=== PATIENT | female | born 1990 | race Caucasian/White ===

== ENCOUNTER 2016-10-20 09:44 | Emergency (ER) | payer SELFPAY ==
[2016-10-20 10:02] VITALS: BP 139/87
[2016-10-20] MEDS ORDERED: HYDROCODONE/ACETAMINOPHEN 5-325 MG TABLET PO ONE (11:40)
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
== END 2016-10-20 12:47 | disposition home or self-care (01) ==
LOC: ER 09:44
PROC: 2W3QX1Z Immobilization of Right Lower Leg using Splint (ICD-10-PCS; principal; 2016-10-20)
DX: S82.54XA Nondisplaced fracture of medial malleolus of right tibia, initial encounter for closed fracture (principal); S92.241A Displaced fracture of medial cuneiform of right foot, initial encounter for closed fracture; V86.99XA Unspecified occupant of other special all-terrain or other off-road motor vehicle injured in nontraffic accident, initial encounter
CPT/HCPCS: 99283

== ENCOUNTER 2017-09-03 23:20 | Emergency (ER) | payer SELFPAY ==
[2017-09-04] MEDS ORDERED: CIPROFLOXACIN HCL/DEXAMETH OTIC DROP 7.5 ML AS ONE (00:44)
[2017-09-04] MEDS ORDERED: LIDOCAINE 2% JELLY 5 ML TUBE TOP ONE (00:47)
[2017-09-04] MEDS ORDERED: AMOXICILLIN TRIHYDRATE 500 MG CAPSULE PO ONE (00:48)
[2017-09-04] MEDS ORDERED: ACETAMINOPHEN 325 MG TABLET PO ONE (00:48)
[2017-09-04] MEDS ORDERED: IBUPROFEN 600 MG TABLET PO ONE (00:48)
--- NOTE | 2017-09-04 00:54 | ER Document Report ---
ED General - General Chief Complaint: Ear Pain Stated Complaint: NECK AND JAW PAIN Time Seen by Provider: 09/04/17 00:13 Notes: Patient is a 27-year-old female with a past medical history who presents with 3 days of progressively worsening left ear and jaw pain. Patient states that her symptoms started 3 days ago but became much worse after she got a flight to come back from [place] today. She states that since getting off the plane she has effectively unable to hear out of her left ear and has a constant, dull, throbbing pain to the left ear and jaw. Nothing improves the pain and she has tried Tylenol and ibuprofen. Any movement of the jaw worsens the pain. She denies any history of similar symptoms in the past. She has not seen her primary doctor regarding today's concerns. She denies any fever, confusion, and limited neck range of motion, vomiting, although she knows she has been somewhat nauseated. TRAVEL OUTSIDE OF THE [place] IN LAST 30 DAYS: No - Related Data Allergies/Adverse Reactions: No Known Allergies Allergy (Verified 10/20/16 09:56) Past Medical History - General Information source: Patient - Social History Smoking Status: Never Smoker Frequency of alcohol use: None Drug Abuse: None Lives with: Spouse/Significant other Family History: Reviewed & Not Pertinent Pulmonary Medical History: Denies: Hx Tuberculosis Endocrine Medical History: Reports: Hx Hypothyroidism Renal/ Medical History: Denies: Hx Peritoneal Dialysis Past Surgical History: Reports: Hx Tonsillectomy - Age 14 - Immunizations Hx Diphtheria, Pertussis, Tetanus Vaccination: Yes Review of Systems - Review of Systems Notes: Constitutional: Negative for fever. HENT: Positive for left ear pain Eyes: Negative for visual changes. Cardiovascular: Negative for chest pain. Respiratory: Negative for shortness of breath. Gastrointestinal: Negative for abdominal pain, vomiting or diarrhea. Genitourinary: Negative for dysuria. Musculoskeletal: Negative for back pain. Skin: Negative for rash. Neurological: Negative for headaches, weakness or numbness. 10 point ROS negative except as marked above and in HPI. Physical Exam - Vital signs Vitals: Temp Pulse BP Pulse Ox 97.9 F 102 H 148/105 H 97 09/03/17 23:48 09/03/17 23:48 09/03/17 23:48 09/03/17 23:48 Interpretation: Tachycardic Notes: PHYSICAL EXAMINATION: GENERAL: Appears uncomfortable, tearful HEAD: Atraumatic, normocephalic. EYES: Pupils equal round and reactive to light, extraocular movements intact, sclera anicteric, conjunctiva are normal. ENT: nares patent, oropharynx clear without exudates. Left TM is bulging with a purulent effusion. External ear canal diffusely erythematous and edematous with severe pain on palpation of any of the areas of the external ear. Mild pain on palpation of the TMJ on the left, no pain on the right. There is no pain or fluctuance on palpation of the mastoid bilaterally. Moist mucous membranes. NECK: Normal range of motion, supple without lymphadenopathy LUNGS: Breath sounds clear to auscultation bilaterally and equal. No wheezes rales or rhonchi. HEART: Regular rate and rhythm without murmurs ABDOMEN: Soft, nontender, normoactive bowel sounds. No guarding, no rebound. No masses appreciated. EXTREMITIES: Normal range of motion, no pitting or edema. No cyanosis. NEUROLOGICAL: No focal neurological deficits. Moves all extremities spontaneously and on command. PSYCH: Anxious SKIN: Warm, Dry, normal turgor, no rashes or lesions noted. Course - Re-evaluation Re-evalutation: 09/04/17 00:49 Patient presents with two days of worsening left ear pain. Patient is in obvious pain on examination. Otoscopic examination of the left ear shows diffuse swelling and erythema of the external ear. There is a purulent effusion and erythema of the tympanic membrane. No pain over palpation of the mastoid. No facial swelling or edema. I do not clinically suspect mastoiditis , facial cellulitis, periorbital cellulitis or orbital cellulitis. Oropharyngeal exam unremarkable. Patient has been started on Ciprodex drops, amoxicillin and lidocaine for pain control. At this time will discharge with return precautions and follow-up recommendations. Verbal discharge instructions given a the bedside and opportunity for questions given. Medication warnings reviewed. Patient is in agreement with this plan and has verbalized understanding of return precautions and the need for primary care follow-up in the next 24-72 hours. - Vital Signs Vital signs: Temp Pulse Resp BP Pulse Ox 98.0 F 88 16 122/73 99 09/04/17 00:57 09/04/17 00:57 09/04/17 00:57 09/04/17 00:57 09/04/17 00:57 Discharge - Discharge Clinical Impression: Otitis externa Qualifiers: Otitis externa type: other infective Chronicity: acute Laterality: left Qualified Code(s): H60.392 - Other infective otitis externa, left ear Otitis media Qualifiers: Otitis media type: unspecified Chronicity: acute Qualified Code(s): H66.90 - Otitis media, unspecified, unspecified ear Additional Instructions: You were seen today for ear pain and have an acute ear infection. Please take the antibiotic that has been prescribed until it is completed even if you are feeling better before you have finished all the antibiotics. Apply 4 drops of the ciprodex twice daily in the affected ear. For your pain: Take ibuprofen 600 mg and acetaminophen 1000 mg every 6 hours together as needed for pain. Apply the topical lidocaine with which you have been sent home for pain not controlled with the Tylenol and ibuprofen. Return if you have worsening of your pain, worsening facial pain, headaches, pass out, or any other symptoms that are worrisome to you. Prescriptions: Amoxicillin 1 tab PO TID #30 tab Referrals: DONALDO JOHNSON MD [Primary Care Provider] - Follow up as needed
[2017-09-04 01:01] VITALS: BP 122/73
[2017-09-04] MEDS ORDERED: MORPHINE SULFATE IR 15 MG TABLET PO ONE (01:27)
[2017-09-04] MEDS ORDERED: HYDROCODONE/ACETAMINOPHEN 5-325 MG (6 TAB/ER DISP) PO PRN (01:27)
== END 2017-09-04 01:45 | disposition home or self-care (01) ==
LOC: ER 23:20
DX: H60.392 Other infective otitis externa, left ear (principal); H66.90 Otitis media, unspecified, unspecified ear; R00.0 Tachycardia, unspecified
CPT/HCPCS: 99282; J3490